=== PATIENT | female | born 1995 | race Asian ===

== ENCOUNTER 2022-01-05 12:36 | Outpatient (CLI) | payer BC ==
[2022-01-05] MEDS ORDERED: Iopamidol 300 61% 100 ML VIAL FS ONE (13:24)
[2022-01-05 13:28] LABS: BHCG - Serum Negative (NEGATIVE); Pregs Control Background? CLEAR/WHITE (CLR/WHITE); Pregs Control Bar Appear? YES (CONTROL BAR)
== END 2022-01-05 12:37 | disposition home or self-care (01) ==
LOC: RAD 12:36
PROVIDERS: ATTEND Urology
DX: R31.29 Other microscopic hematuria (principal)
CPT/HCPCS: 36415; 74410; 84703; Q9967